=== PATIENT | male | born 1935 | race Two or more races ===

== ENCOUNTER 2022-10-04 13:01 | Inpatient (IN) | payer OTHER ==
[~2022-10-04] VITALS: Ht 167.6 cm; Wt 49.5 kg
[2022-10-04] MEDS ORDERED: ACETAMINOPHEN 650 MG SUPP.RECT RC ONE ×2 (13:30→13:40)
--- NOTE | 2022-10-04 13:30 | NUR ---
Pt seen by MD for bedside Eval. Safety measures in place. Will continue to monitor.
[2022-10-04 13:38] LABS: HEMATOCRIT 33.9 % (36.7-47.1); MEAN CORPUSCULAR HEMOGLOBIN 34.4 uug (23.8-33.4); MEAN CORPUSCULAR VOLUME 105.7 fL (73.0-96.2); PLATELET COUNT (AUTO) 112 K/uL (152-348)
--- NOTE | 2022-10-04 13:50 | NUR ---
Late Entry: Patient arrived via ambulance from home with c/o hypotensive episode per materials planning analyst from . Patient is alert, denies any pain or discomfort, no s/s of distress noted, feels warm to touch, rectal temp done, incontinent of stool, cleaned at this time. Patient is excoriated around anal area and scrotum. #22g established in left hand, unable to draw at this time. Right chest wall aria cath intact, abd non tender to palpation, slightly distended with positive bowel sounds. will continue to monitor and sidr rails remain up.
[2022-10-04 13:55] LABS: ABG HCO3 25.3 mmol/L; ABG PCO2 31.3 mmHg (35.0-45.0); ABG PH 7.525 (7.350-7.450); ABG PO2 49.1 mmHg (75.0-100.0); ABG SITE RIGHT RADIAL; ABG TOTAL HEMOGLOBIN 12.3 G/dL (13.5-18.0); COHb 0.9 % (0.5-1.5); MetHb 0.2 % (0.0-1.5); O2Hb 86.5 % (94.0-97.0); VENT MODE Nasal Cannula
--- NOTE | 2022-10-04 14:22 | NUR ---
Pt transferred to radiology for CT scan(s). Safety measures in place.
[2022-10-04] MEDS ORDERED: PIPERACILLIN/TAZOBACTAM/D5W 50 ML IV ONE (14:25)
[2022-10-04] MEDS ORDERED: PIPERACILLIN SODIUM/TAZOBACTAM 3.375 G in IV DEXTROSE 5% 50 ML IV ONE (14:30)
[2022-10-04] MEDS ORDERED: VANCOMYCIN IV 1,000 MG in IV DEXTROSE 5% 250 ML IV ONE (14:30)
[2022-10-04] MEDS ORDERED: VANCOMYCIN IV 200 ML ONE (14:42)
[2022-10-04] MEDS ORDERED: IV NORMAL SALINE 500 ML BAG IV ONE (15:15)
[2022-10-04 15:36] LABS: ALANINE AMINOTRANSFERASE 17 U/L (16-63); ALKALINE PHOSPHATASE 133 U/L (50-136); ASPARTATE AMINOTRANSFERASE 39 U/L (15-37); BILIRUBIN,DIRECT 0.8 mg/dL (0.0-0.2); BILIRUBIN,TOTAL 1.4 mg/dL (0.2-1.0); CARBON DIOXIDE 26 mmol/L (21-32); CHLORIDE 101 mmol/L (98-107); CREATININE 4.4 mg/dL (0.6-1.3); GLUCOSE 116 mg/dL (74-106); POTASSIUM 3.7 mmol/L (3.5-5.1); TOTAL PROTEIN, SERUM 5.2 g/dL (6.4-8.2); UREA NITROGEN, BLOOD 29 mg/dL (7-18)
--- NOTE | 2022-10-04 15:58 | NUR ---
LAB AT BEDSIDE FOR DRAW, FAMILY REMAINS AT BEDSIDE AND HAS BEEN UPDATED ON PLAN OF CARE.
[2022-10-04] MEDS ORDERED: MEMA10TA PO (16:35)
[2022-10-04] MEDS ORDERED: OMEP20TA5 PO (16:35)
[2022-10-04] MEDS ORDERED: DORZ10DR13 EACHEYE (16:35)
[2022-10-04] MEDS ORDERED: FOLI0.8T22 PO (16:35)
[2022-10-04] MEDS ORDERED: FERR325T28 PO (16:35)
[2022-10-04] MEDS ORDERED: FLUT16SP16 BNOSTRILS (16:35)
[2022-10-04] MEDS ORDERED: LATA2.5D15 EACHEYE (16:35)
[2022-10-04] MEDS ORDERED: MIRT-73 PO (16:35)
[2022-10-04] MEDS ORDERED: ASPI81TA31 PO (16:35)
[2022-10-04] MEDS ORDERED: MAGNESIUM HYDROXIDE 30 ML LIQUID UDC PO PRN (17:30)
[2022-10-04] MEDS ORDERED: PIPERACILLIN/TAZO 2.25 G in IV DEXTROSE 5% 50 ML IV SCH (17:30)
[2022-10-04] MEDS ORDERED: MORPHINE SULFATE 2 MG/1 ML DISP.SYRIN IV PRN (17:30)
[2022-10-04] MEDS ORDERED: ACETAMINOPHEN 325 MG TABLET PO PRN (17:30)
[2022-10-04] MEDS ORDERED: HYDROCODONE/APAP 5-325MG TABLET PO PRN (17:30)
[2022-10-04] MEDS ORDERED: DEXTROSE 50% 50 ML DISP.SYRIN IV PRN (17:30)
[2022-10-04] MEDS ORDERED: ONDANSETRON 4 MG/2 ML VIAL IV PRN (17:30)
--- NOTE | 2022-10-04 17:47 | NUR ---
Gave report to Meg. Addendum: 10/04/22 at 1911 by SUSAN Meg BAGLEY) in CCU.
[2022-10-04 17:50] LABS: MAGNESIUM 1.9 mg/dL (1.8-2.4); PHOSPHOROUS 3.4 mg/dL (2.5-4.9)
[2022-10-04] MEDS ORDERED: PIPERACILLIN/TAZOBACTAM/D5W 50 ML ONE ×2 (18:01→23:59)
--- NOTE | 2022-10-04 18:50 | NUR ---
PT. in from ER. pt. was connected to monitoring coordinator On NSR, sbp of 123/60 HR 89 saturation of 100% on NR. pt. non-verbal. At the time of arrival pt. cleaned received him with a large watery stool. skin excoriation to sacral and scrotal area. Patient care endorsed to shift foreman nurse. Leanne perry who will continue with care plan,
[2022-10-04 19:00] VITALS: BP 123/60
--- NOTE | 2022-10-04 19:11 | NUR ---
Pt transferred to CCU Rm 5 in stable condition. All belongings given with Patient.
[2022-10-04 20:00] VITALS: BP 105/58
[2022-10-04 21:00] VITALS: BP 105/62
[2022-10-04] MEDS: REMEDY ESSENTIAL ZINC PASTE 113 GM TOP SCH (21:00)
[2022-10-04 22:00] VITALS: BP 96/46
[2022-10-04] MEDS: BLOOD SUGAR DIAGNOSTIC 1 EACH STRIP VI SCH (22:00)
[2022-10-04 23:00] VITALS: BP 92/52
[2022-10-05] VITALS (25 sets, daily range): BP systolic 74–132; BP diastolic 39–84
[2022-10-05] MEDS ORDERED: PIPERACILLIN/TAZO 2.25 G in IV DEXTROSE 5% 50 ML IV ONE (02:00)
[2022-10-05] MEDS ORDERED: NOREPINEPHRINE BITARTRATE 4 MG/4 ML VIAL IV ONE ×2 (02:34→23:54)
[2022-10-05] MEDS: NOREPINEPHRINE BITARTRATE 8 MG in IV NORMAL SALINE 242 ML IV PRN ×2 (03:10→23:59)
[2022-10-05 05:18] LABS: HEMATOCRIT 33.8 % (36.7-47.1); MEAN CORPUSCULAR HEMOGLOBIN 35.7 uug (23.8-33.4); MEAN CORPUSCULAR VOLUME 105.8 fL (73.0-96.2); PLATELET COUNT (AUTO) 98 K/uL (152-348)
[2022-10-05 05:31] LABS: CARBON DIOXIDE 28 mmol/L (21-32); CHLORIDE 101 mmol/L (98-107); CREATININE 4.6 mg/dL (0.6-1.3); GLUCOSE 125 mg/dL (74-106); MAGNESIUM 1.9 mg/dL (1.8-2.4); PHOSPHOROUS 3.4 mg/dL (2.5-4.9); POTASSIUM 3.6 mmol/L (3.5-5.1); UREA NITROGEN, BLOOD 34 mg/dL (7-18)
[2022-10-05 05:32] LABS: CHOLESTEROL 83 mg/dL (<200); HDL CHOLESTEROL 18 mg/dL (40-60); TRIGLYCERIDES 98 MG/DL (30-150)
[2022-10-05] MEDS: BLOOD SUGAR DIAGNOSTIC 1 EACH STRIP VI SCH ×4 (06:15→21:46)
[2022-10-05] MEDS: PANTOPRAZOLE SODIUM 40 MG TABLET.DR PO SCH (07:00)
--- NOTE | 2022-10-05 07:30 | NUR ---
REPORT GIVEN TO GERMÁN MOSLEY
[2022-10-05] MEDS: REMEDY ESSENTIAL ZINC PASTE 113 GM TOP SCH ×2 (09:00→21:39)
[2022-10-05] MEDS ORDERED: PIPERACILLIN/TAZO 2.25 G in IV DEXTROSE 5% 50 ML IV SCH (10:00)
--- NOTE | 2022-10-05 11:46 | NUR ---
WOUND CARE CONSULT: PT PRESENTS WITH SACRAL DEEP TISSUE INJURY OVER SCARRING, PRESENT ON ADMISSION. PT NOTED TO HAVE VERY FRAGILE SKIN WITH AREAS OF DISCOLORATION, ESPECIALLY ON UPPER EXTREMITIES WITH INTACT BLISTER TO RT ARM. DISCUSSED SKIN PROTECTION AND WOUND CARE RECOMMENDATIONS WITH NURSING STAFF. IN AGREEMENT WITH PLAN OF CARE. Addendum: 10/05/22 at 1147 by CLAUDE MERA RN Amended: Links added.
[2022-10-05] MEDS: ASPIRIN 81 MG TAB.CHEW PO SCH (13:00)
[2022-10-05] MEDS ORDERED: CEFTRIAXONE 2 G in IV DEXTROSE 5% 100 ML IV SCH ×2 (15:30→18:00)
[2022-10-05] MEDS: DORZOLAMIDE/TIMOLOL OPHT DROP 10 ML BOTTLE EACHEYE SCH (17:00)
[2022-10-05] MEDS ORDERED: AZITHROMYCIN IV 500 MG in IV DEXTROSE 5% 250 ML IV SCH (17:00)
[2022-10-05] MEDS: MIRTAZAPINE 15 MG TAB.RAPDIS PO SCH (18:38)
--- NOTE | 2022-10-05 18:49 | NUR ---
report called stormy randall at [facility] at [phone] bed a. oncoming rn informed of pts procedures or dislysis and a peracentesis to be performed at [address] vergal understanding noted.,
[2022-10-05 20:02] LABS: ABG BASE EXCESS 1.8 mmol/L; ABG HCO3 24.6 mmol/L; ABG PCO2 32.8 mmHg (35.0-45.0); ABG PH 7.493 (7.350-7.450); ABG PO2 50.4 mmHg (75.0-100.0); ABG SITE RIGHT RADIAL; ABG TOTAL HEMOGLOBIN 12.4 G/dL (13.5-18.0); COHb 0.7 % (0.5-1.5); MetHb 0.1 % (0.0-1.5); O2Hb 87.2 % (94.0-97.0)
[2022-10-05] MEDS: LATANOPROST OPHT DROP 2.5 ML BOTTLE EACHEYE SCH (21:38)
[2022-10-05] MEDS: INSULIN REGULAR, HUMAN 300 UNIT/3 ML VIAL SQ PRN (21:48)
--- NOTE | 2022-10-05 22:45 | NUR ---
Vital signs 99/45 97.8 200 - 18; Spo2 97 on 5L N/C. N. Chris N.P. notified.
[2022-10-05] MEDS ORDERED: IV NORMAL SALINE 250 ML IV ONE (23:45)
[2022-10-06] VITALS (61 sets, daily range): BP systolic 84–127; BP diastolic 40–93
[2022-10-06] MEDS ORDERED: AMIODARONE HCL IV 150 MG in IV DEXTROSE 5% 100 ML IV ONE (00:45)
[2022-10-06] MEDS ORDERED: AMIODARONE HCL 150 MG/3 ML VIAL IV ONE ×2 (01:11→01:17)
[2022-10-06] MEDS: AMIODARONE HCL IV 450 MG in IV DEXTROSE 5% 250 ML IV PRN ×2 (01:30→20:52)
[2022-10-06 05:34] LABS: HEMATOCRIT 33.5 % (36.7-47.1); MEAN CORPUSCULAR HEMOGLOBIN 34.5 uug (23.8-33.4); PLATELET COUNT (AUTO) 101 K/uL (152-348)
[2022-10-06 05:47] LABS: CARBON DIOXIDE 27 mmol/L (21-32); CHLORIDE 98 mmol/L (98-107); CREATININE 5.1 mg/dL (0.6-1.3); GLUCOSE 99 mg/dL (74-106); PHOSPHOROUS 2.9 mg/dL (2.5-4.9); POTASSIUM 3.3 mmol/L (3.5-5.1); UREA NITROGEN, BLOOD 41 mg/dL (7-18)
[2022-10-06] MEDS: BLOOD SUGAR DIAGNOSTIC 1 EACH STRIP VI SCH ×4 (06:15→21:23)
[2022-10-06] MEDS: PANTOPRAZOLE SODIUM 40 MG TABLET.DR PO SCH (06:17)
[2022-10-06] MEDS: NOREPINEPHRINE BITARTRATE 8 MG in IV NORMAL SALINE 242 ML IV PRN ×3 (07:02→20:41)
[2022-10-06] MEDS: FLUTICASONE PROP NASAL SPRAY 16 GM BOTTLE NS SCH (09:09)
[2022-10-06] MEDS: REMEDY ESSENTIAL ZINC PASTE 113 GM TOP SCH ×2 (09:10→20:55)
[2022-10-06] MEDS: DORZOLAMIDE/TIMOLOL OPHT DROP 10 ML BOTTLE EACHEYE SCH ×2 (09:10→17:08)
[2022-10-06] MEDS: ASPIRIN 81 MG TAB.CHEW PO SCH (09:13)
[2022-10-06] MEDS: FERROUS SULFATE 325 MG TABEC PO SCH (09:13)
[2022-10-06] MEDS: FOLIC ACID/VITAMIN B COMP W-C TABLET PO SCH (09:13)
[2022-10-06] MEDS: MEMANTINE HCL 10 MG TABLET PO SCH (09:54)
[2022-10-06] MEDS: INSULIN REGULAR, HUMAN 300 UNIT/3 ML VIAL SQ PRN (11:34)
[2022-10-06] MEDS ORDERED: NOREPINEPHRINE BITARTRATE 32 MG in IV NORMAL SALINE 218 ML IV PRN (13:00)
--- NOTE | 2022-10-06 16:00 | NUR ---
FAMILY AT BEDSIDE, UPDATED WITH PT.CONDITION AND PLAN OF CARE.
[2022-10-06] MEDS: MIRTAZAPINE 15 MG TAB.RAPDIS PO SCH (17:12)
--- NOTE | 2022-10-06 18:45 | NUR ---
HD DONE, POST BLOOD RETURN,PT.START DESAT, NRM 15L WAS APPL.
--- NOTE | 2022-10-06 19:10 | NUR ---
Pt is noted in bed responsive as he is a full code with call light in reach and fall precautions in place as report is received from the off going nurse. Sinus Tachy on the Tele monitor, Diminished Lungs sound with 02 15Liters on a Non-Rebreather Mask, skin dry, warm but skin areas noted , please see skin assessment sheet in chart. Pt is also noted with Right Subclavian Hemodialysis access as he is S/P Hemodialysis today with 1Liter out Put per Day shift , Pt also has Right Upper Arm Midline with Amrod at 0.5Mcg and Levo at 0.3mcg gtt therapy in progress as Pt is due for transferred out to [facility] but can not at these our as Pt is been monitor closely after Hemodialysis with Sats at 93% and Blood pressure is in the 90s. Pt care continue as he is been monitor closely.
[2022-10-06] MEDS ORDERED: VANCOMYCIN IV 750 MG in IV DEXTROSE 5% 250 ML IV ONE (20:00)
[2022-10-06] MEDS: MEROPENEM 1 G in IV NORMAL SALINE 100 ML IV SCH (20:03)
--- NOTE | 2022-10-06 20:16 | NUR ---
Pt care continue as spoke with Clementina at [place] and noted to keep Pt over night with updates given on Pt conditions.
--- NOTE | 2022-10-06 20:23 | NUR ---
Pt remain full code as family is notify off Plan to keep Pt over night. Pt care continue.
[2022-10-06] MEDS: LATANOPROST OPHT DROP 2.5 ML BOTTLE EACHEYE SCH (20:38)
[2022-10-06] MEDS: AZITHROMYCIN IV 250 MG in IV DEXTROSE 5% 250 ML IV SCH (20:39)
[2022-10-07] VITALS (41 sets, daily range): BP systolic 75–141; BP diastolic 43–93
--- NOTE | 2022-10-07 00:30 | NUR ---
Pt is sleeping as he is been monitor closely with Amrod and Levo gtt therapy in progress and still on the Non-Rebreather Mask , call light in reach and He is been turn and reposition Q2hrs for comfort. Pt care continue.
--- NOTE | 2022-10-07 04:48 | NUR ---
AM and wound care done with no S/S off distress but still on the Non-Rebreather Mask and Levo with Amrod gtt therapy in progress. Pt care continue.
[2022-10-07 05:35] LABS: HEMATOCRIT 41.3 % (36.7-47.1); MEAN CORPUSCULAR HEMOGLOBIN 34.8 uug (23.8-33.4); MEAN CORPUSCULAR VOLUME 107.5 fL (73.0-96.2); PLATELET COUNT (AUTO) 55 K/uL (152-348)
[2022-10-07 05:42] LABS: CARBON DIOXIDE 24 mmol/L (21-32); CHLORIDE 94 mmol/L (98-107); CREATININE 3.6 mg/dL (0.6-1.3); GLUCOSE 192 mg/dL (74-106); POTASSIUM 3.4 mmol/L (3.5-5.1); UREA NITROGEN, BLOOD 23 mg/dL (7-18)
[2022-10-07] MEDS: BLOOD SUGAR DIAGNOSTIC 1 EACH STRIP VI SCH ×4 (06:34→20:55)
[2022-10-07] MEDS: INSULIN REGULAR, HUMAN 300 UNIT/3 ML VIAL SQ PRN ×2 (06:35→20:58)
[2022-10-07] MEDS: PANTOPRAZOLE SODIUM 40 MG TABLET.DR PO SCH (06:36)
--- NOTE | 2022-10-07 07:00 | NUR ---
Received pt. on radiation monitor and Levophed running at 0.5mcg/kg/min. Awake alert oriented to name. Gargle speech. NSR to ST low 100's. On Noon-Rebreather 15L 100%. saturation of 100%.no tachypnea noted. skin breakdown will be treated per protocol, Will continue with care plan.
--- NOTE | 2022-10-07 07:39 | NUR ---
Pt care continue as report is given to the AM receiving nurse.
[2022-10-07] MEDS: FLUTICASONE PROP NASAL SPRAY 16 GM BOTTLE NS SCH (08:00)
[2022-10-07] MEDS: DORZOLAMIDE/TIMOLOL OPHT DROP 10 ML BOTTLE EACHEYE SCH ×2 (08:00→17:00)
[2022-10-07] MEDS: FERROUS SULFATE 325 MG TABEC PO SCH (08:01)
[2022-10-07] MEDS: MEMANTINE HCL 10 MG TABLET PO SCH (08:01)
[2022-10-07] MEDS: ASPIRIN 81 MG TAB.CHEW PO SCH (08:01)
[2022-10-07] MEDS: MEROPENEM 1 G in IV NORMAL SALINE 100 ML IV SCH (08:02)
[2022-10-07] MEDS: REMEDY ESSENTIAL ZINC PASTE 113 GM TOP SCH ×2 (08:03→20:44)
[2022-10-07] MEDS: FOLIC ACID/VITAMIN B COMP W-C TABLET PO SCH (08:04)
--- NOTE | 2022-10-07 08:19 | NUR ---
Medications administered as per report pt. swallows ok pt. noted to be coughing and barely able to swallow medication, swallowing was delayed, and followed with spells of coughing. For safety attending will be notified to request swallow eval.
[2022-10-07] MEDS: NOREPINEPHRINE BITARTRATE 8 MG in IV NORMAL SALINE 242 ML IV PRN ×3 (09:41→20:26)
[2022-10-07] MEDS: AMIODARONE HCL IV 450 MG in IV DEXTROSE 5% 250 ML IV PRN (10:27)
[2022-10-07] MEDS: AMIODARONE HCL 200 MG TABLET PO SCH ×2 (11:00→20:44)
[2022-10-07] MEDS: PROTEIN SUPPLEMENT (PROSTAT) 30 ML LIQUID PO SCH ×2 (12:45→17:00)
[2022-10-07] MEDS: NEPRO (VANILLA) 237 ML CAN PO SCH ×2 (12:45→17:00)
[2022-10-07 16:13] LABS: ABG BASE EXCESS -1.7 mmol/L; ABG HCO3 23.6 mmol/L; ABG PCO2 42.2 mmHg (35.0-45.0); ABG PH 7.366 (7.350-7.450); ABG PO2 52.6 mmHg (75.0-100.0); ABG SITE RIGHT RADIAL; ABG TOTAL HEMOGLOBIN 12.3 G/dL (13.5-18.0); COHb 0.6 % (0.5-1.5); MetHb 0.2 % (0.0-1.5); O2Hb 85.5 % (94.0-97.0)
--- NOTE | 2022-10-07 17:00 | NUR ---
A call to Dr. Gutierrez pulmonary services and attending Delmar Oliver to update them on patients desaturation. pt. placed on Highflow and only improved to saturation of 92 for 3 minutes and saturation drop to 79-mid-80's. patient cold to touch, awake, placed on BIPAP. Addendum: 10/07/22 at 1726 by JUSTIN LAKE RN BIPAP setting are Ipap16, Epap 6, Rate of 16 FIO2 titrated to maintain saturation above 92%.
--- NOTE | 2022-10-07 17:24 | NUR ---
Dr. Zepeda ER. Physician in the unit to examine pt. Report given. Orders to continue monitoring received.
[2022-10-07] MEDS: MIRTAZAPINE 15 MG TAB.RAPDIS PO SCH (17:30)
[2022-10-07] MEDS: AZITHROMYCIN IV 250 MG in IV DEXTROSE 5% 250 ML IV SCH (17:32)
--- NOTE | 2022-10-07 19:14 | NUR ---
Talked to GERMÁN Weaver to order PT, PTT, INR since the last result for Coagulation on 10/04/2022 was high. The tech will go and scan tomorrow morning. If there is enough ascites and the Coagulation results are acceptable, Paracentesis will be performed.
--- NOTE | 2022-10-07 19:15 | NUR ---
Pt is noted in bed responsive as he is a full code with call light in reach and fall precautions in place as report is received from the off going nurse. Sinus Tachy on the Tele monitor, Diminished Lungs sound with 02 BiPAP on therapy and to keep >90%, skin dry, warm but skin areas noted , please see skin assessment sheet in chart. Pt is also noted with Right Subclavian Hemodialysis access , Pt also has Right Upper Arm Midline with Amrod at 0.5Mcg and Levo at 0.3mcg gtt therapy in progress as Pt is due for Ultrasound Guided Paracentesis in AM and needs consent to be signed by . Pt care continue as he is been monitor closely as Olga Lidia Lucas called at [phone] but no responses at these hour.
[2022-10-07] MEDS: LATANOPROST OPHT DROP 2.5 ML BOTTLE EACHEYE SCH (20:43)
--- NOTE | 2022-10-07 21:00 | NUR ---
Pt visited and she signed consent for Ultrasound Guided Paracentesis . Pt care continue as he is been monitor closely with Levo at 0.3mcg gtt.
[2022-10-08] VITALS (38 sets, daily range): BP systolic 47–148; BP diastolic 28–101
--- NOTE | 2022-10-08 00:11 | NUR ---
Pt is now NPO for Ultrasound Guided Paracentesis in AM as he remain on BiPAP therapy and 02 Sats >90%. Pt care continue.
--- NOTE | 2022-10-08 04:48 | NUR ---
Pt is sleeping with no S/S off distress as he remain on BiPAP therapy as AM and wound care done. Pt care continue while monitor closely as he remain Full code .
[2022-10-08] MEDS: NOREPINEPHRINE BITARTRATE 8 MG in IV NORMAL SALINE 242 ML IV PRN (05:30)
[2022-10-08] MEDS: PANTOPRAZOLE SODIUM 40 MG TABLET.DR PO SCH ×2 (06:47→19:30)
[2022-10-08] MEDS: INSULIN REGULAR, HUMAN 300 UNIT/3 ML VIAL SQ PRN (06:48)
[2022-10-08] MEDS: BLOOD SUGAR DIAGNOSTIC 1 EACH STRIP VI SCH ×4 (06:48→21:00)
--- NOTE | 2022-10-08 07:10 | NUR ---
Received pt on bipap 03/11 rate of 16 FIO2 of 80%, saturation 94%. On levophed running at 0.2mcg/kg/min. with sbp above 90's. Neuro-aguilar pt,. AAOX1. On NSR rate 80's-90's. IV line patent will continue to monitor.
--- NOTE | 2022-10-08 07:34 | NUR ---
Pt care continue as report is given to the AM receiving nurse.
[2022-10-08 07:44] LABS: HEMATOCRIT 34.5 % (36.7-47.1); MEAN CORPUSCULAR HEMOGLOBIN 34.7 uug (23.8-33.4); MEAN CORPUSCULAR VOLUME 105.7 fL (73.0-96.2); PLATELET COUNT (AUTO) 83 K/uL (152-348)
[2022-10-08 08:03] LABS: CARBON DIOXIDE 22 mmol/L (21-32); CHLORIDE 91 mmol/L (98-107); GLUCOSE 183 mg/dL (74-106); POTASSIUM 3.3 mmol/L (3.5-5.1); UREA NITROGEN, BLOOD 30 mg/dL (7-18)
--- NOTE | 2022-10-08 08:10 | NUR ---
Cardiology services, Dr. Zavala in the unit to follow up on pt. report given , with orders to continue with care plan received.
[2022-10-08] MEDS: DORZOLAMIDE/TIMOLOL OPHT DROP 10 ML BOTTLE EACHEYE SCH ×2 (08:18→16:58)
[2022-10-08] MEDS: MEROPENEM 1 G in IV NORMAL SALINE 100 ML IV SCH (08:19)
[2022-10-08] MEDS: FLUTICASONE PROP NASAL SPRAY 16 GM BOTTLE NS SCH (08:19)
[2022-10-08] MEDS: ASPIRIN 81 MG TAB.CHEW PO SCH (08:24)
[2022-10-08] MEDS: FOLIC ACID/VITAMIN B COMP W-C TABLET PO SCH (08:24)
[2022-10-08] MEDS: FERROUS SULFATE 325 MG TABEC PO SCH (08:24)
[2022-10-08] MEDS: MEMANTINE HCL 10 MG TABLET PO SCH (08:25)
[2022-10-08] MEDS: AMIODARONE HCL 200 MG TABLET PO SCH ×2 (08:25→21:00)
[2022-10-08] MEDS: REMEDY ESSENTIAL ZINC PASTE 113 GM TOP SCH ×2 (08:26→21:00)
--- NOTE | 2022-10-08 08:51 | NUR ---
Morning medications administered, pt. with swallow delayed and unable to swallow all his medications..patient required a lot of coughing to completely swallow, with some coughing noted. saturation during this time drop to 88% pt. off bipap.
[2022-10-08] MEDS: PROTEIN SUPPLEMENT (PROSTAT) 30 ML LIQUID PO SCH ×2 (09:00→16:57)
[2022-10-08] MEDS: NEPRO (VANILLA) 237 ML CAN PO SCH ×2 (09:00→16:57)
--- NOTE | 2022-10-08 09:40 | NUR ---
Attending Delmar Ramon in to follow up on pt. report given.
[2022-10-08] MEDS ORDERED: NOREPINEPHRINE BITARTRATE 32 MG in IV NORMAL SALINE 218 ML IV PRN (10:15)
--- NOTE | 2022-10-08 11:15 | NUR ---
A call from Delmar and orders to have only one procedure done today either one would be ok. as stated by Yenny
--- NOTE | 2022-10-08 11:35 | NUR ---
Delmar at bedside having a conference with pt's and son.
--- NOTE | 2022-10-08 11:42 | NUR ---
The tech talked to IR, DR Shannon Martinez ) ([phone]) regarding Stat Paracentesis. IR told me to postpone Paracentesis to tomorrow since the Coagulation result are not satisfactory.
[2022-10-08] MEDS ORDERED: POTASSIUM CHLORIDE 50 ML IV SCH (13:30)
[2022-10-08] MEDS: AZITHROMYCIN IV 250 MG in IV DEXTROSE 5% 250 ML IV SCH (16:57)
[2022-10-08] MEDS ORDERED: VANCOMYCIN IV 500 MG in IV DEXTROSE 5% 100 ML IV PRN (17:15)
--- NOTE | 2022-10-08 17:40 | NUR ---
At this time Pt. with heart rate in the 40's pulse barely palpable, agona breathing noted. notified ER Physician Upon arrival pulses not palpable compression started, and code alina called. For medications administered see code blue file. Patient intubated at 1745 ETT. 7.0 A/C 16, TV 400 PEEP + 5 100% FIO2. patient was preciously on levophed was running at 0.7mcg/kg/min. After rounds of compressions pt. with palpable pulse heart rate in the 120's. During the code attending called and was updated by ER. Physician who in turn updated family of events.
--- NOTE | 2022-10-08 17:40 | NUR ---
Patient with bradycardia rate in the 4
[2022-10-08] MEDS ORDERED: CALCIUM CHLORIDE 1 GM/10 ML DISP.SYRIN IVP ONE (18:43)
[2022-10-08] MEDS ORDERED: EPINEPHRINE 1:10,000 1 MG/10 ML DISP.SYRIN ONE (18:43)
[2022-10-08] MEDS ORDERED: ATROPINE SULFATE 1 MG/10 ML DISP.SYRIN ONE (18:43)
[2022-10-08] MEDS ORDERED: SODIUM BICARBONATE 8.4% 50 MEQ/50 ML DISP.SYRIN IV ONE (18:43)
--- NOTE | 2022-10-08 18:50 | NUR ---
AT this time 2nd jennifer fuller called see jennifer fuller list. following pt's wishes and attending N.P. instructions pt. received 3 round of medications with no returned of pulse. jennifer fuller attended by ER. Physician Dr. Rashmi Seth. patient pronounced at 1900 upon stopping compression patient Asystole. no sbp. Patient pronounced by MD. Seth. Valery.
--- NOTE | 2022-10-08 19:00 | NUR ---
Pronounced by Dr. Rolo Rasmussen Patient apneic for one minute. No audible heart sounds for one minute. No palpable pulses for one minute. No corneal reflexes. Patient pronounced by ER. Physician.
--- NOTE | 2022-10-08 19:17 | NUR ---
Called [facility] and spoke withamador Morales retail representative as stated "body is release we are not going to pursue any organ donation RID number [id number].
--- NOTE | 2022-10-08 19:19 | NUR ---
Patient remains and final care will be endorse to incoming R.N.
--- NOTE | 2022-10-08 19:20 | NUR ---
Report received from the ff going nurse that Decedent was coded x2 and last code ended at 1900 and has been pronounced by DR. Seth with [facility] is been notify as well as Attending and family. Awaiting Family so Decedent will be taken down to facility Mortuary until family fern picker the Remains off Decedent.
[2022-10-08] MEDS: MIRTAZAPINE 15 MG TAB.RAPDIS PO SCH (19:30)
--- NOTE | 2022-10-08 19:35 | NUR ---
Family is noted on the unit.
[2022-10-08] MEDS: LATANOPROST OPHT DROP 2.5 ML BOTTLE EACHEYE SCH (21:00)
--- NOTE | 2022-10-08 22:33 | NUR ---
Decedent family just left the unit and post Mortise care Done as [employer] been notify.
--- NOTE | 2022-10-08 23:34 | NUR ---
Decedent is been taken down to Facility [facility] with Security and General Counsel.
[2022-10-09] MEDS ORDERED: MEROPENEM 0.5 G in IV NORMAL SALINE 50 ML IV SCH (09:00)
[2022-10-10] MEDS ORDERED: EPINEPHRINE 1:10,000 1 MG/10 ML DISP.SYRIN ONE
[2022-10-16] MEDS ORDERED: VANCOMYCIN IV 500 MG in IV DEXTROSE 5% 100 ML IV PRN (11:10)
== END 2022-10-08 19:00 | DRG 871 ==
LOC: ER 13:01 → CCU 18:44
PROVIDERS: ADMIT Nurse Practitioner Acute Care; ATTEND Nurse Practitioner Acute Care
PROC: 05HB33Z Insertion of Infusion Device into Right Basilic Vein, Percutaneous Approach (ICD-10-PCS; 2022-10-06)
PROC: 5A1D70Z Performance of Urinary Filtration, Intermittent, Less than 6 Hours Per Day (ICD-10-PCS; 2022-10-06)
PROC: 5A09357 Assistance with Respiratory Ventilation, Less than 24 Consecutive Hours, Continuous Positive Airway Pressure (ICD-10-PCS; 2022-10-07)
PROC: 5A1935Z Respiratory Ventilation, Less than 24 Consecutive Hours (ICD-10-PCS; principal; 2022-10-08)
PROC: 5A12012 Performance of Cardiac Output, Single, Manual (ICD-10-PCS; 2022-10-08)
PROC: 0BH17EZ Insertion of Endotracheal Airway into Trachea, Via Natural or Artificial Opening (ICD-10-PCS; 2022-10-08)
DX: A41.9 Sepsis, unspecified organism (principal); E43 Unspecified severe protein-calorie malnutrition; J15.9 Unspecified bacterial pneumonia; J96.01 Acute respiratory failure with hypoxia; R65.21 Severe sepsis with septic shock; N18.6 End stage renal disease; G92.8 Other toxic encephalopathy; I50.33 Acute on chronic diastolic (congestive) heart failure; I13.2 Hypertensive heart and chronic kidney disease with heart failure and with stage 5 chronic kidney disease, or end stage renal disease; Z68.1 Body mass index [BMI] 19.9 or less, adult; E87.20 Acidosis, unspecified; J98.11 Atelectasis; E87.1 Hypo-osmolality and hyponatremia; K76.6 Portal hypertension; R18.8 Other ascites; R64 Cachexia; D63.1 Anemia in chronic kidney disease; D69.6 Thrombocytopenia, unspecified; E11.22 Type 2 diabetes mellitus with diabetic chronic kidney disease; D53.9 Nutritional anemia, unspecified; E87.6 Hypokalemia; G30.9 Alzheimer's disease, unspecified; F02.80 Dementia in other diseases classified elsewhere, unspecified severity, without behavioral disturbance, psychotic disturbance, mood disturbance, and anxiety; R13.10 Dysphagia, unspecified; Q78.9 Osteochondrodysplasia, unspecified; K74.60 Unspecified cirrhosis of liver; E78.5 Hyperlipidemia, unspecified; K82.8 Other specified diseases of gallbladder; I46.9 Cardiac arrest, cause unspecified; Z20.822 Contact with and (suspected) exposure to COVID-19; I48.0 Paroxysmal atrial fibrillation; Z87.01 Personal history of pneumonia (recurrent); Z99.2 Dependence on renal dialysis
CPT/HCPCS: 36415; 36600; 71045; 71250; 82803; 83605; 83735; 84100; 84484; 85025; 85610; 85730; 86803; 87040; 87806; 92950; 93005; 93307; 94002; 94660; 94760; A4663; A6209; G0378; J0171; J0282; J0456; J0461; J0696; J1815; J2185; J2270; J2543; J3370; J3480; J3490; J3535; J7040; J7050